=== PATIENT | male | born 1970 | race Caucasian/White ===

== ENCOUNTER 2018-05-18 23:34 | Emergency (ER) | payer OTHER ==
[~2018-05-18] VITALS: Ht 185.4 cm; Wt 93.2 kg
[2018-05-18 23:58] VITALS: TEMP 98.9
[2018-05-19 00:19] LABS: BASO % 0.3 % (0.0-2.0); EOS # 0.2 (0.0-0.7); EOS % 1.3 % (0-4.0); GRAN # 6.7 (1.4-6.5); HEMATOCRIT 44.5 % (42.0-52.0); LYMPH # 4.1 (1.2-3.4); LYMPH % 33.8 % (20.0-51.0); MEAN CELL VOLUME 86 fl (80.0-100.0); MEAN CORPUSCULAR HEMOGLOBIN 29 pg (27.0-31.0); MEAN CORPUSCULAR HGB CONC 34 g/dl (33.0-37.0); MONO # 1.1 (0.1-0.6); MONO % 8.9 % (1.7-9.3); PLATELET COUNT 350 K/mm3 (130-400); RED BLOOD COUNT 5.15 M/mm3 (4.20-5.60); REDCELL DISTRIBUTION WIDTH-CV 12.3 % (11.5-14.5)
[2018-05-19] MEDS ORDERED: ADDERALL XR30 MG PO (00:26)
[2018-05-19 00:33] LABS: ALBUMIN 4.4 gm/dL (3.5-5.0); BILIRUBIN,TOTAL 0.3 mg/dL (0.0-1.0); C-REACTIVE PROTEIN 0.6 mg/dL (0.0-0.9); CALCIUM 9.4 mg/dL (8.4-10.2); CREATININE, serum 0.91 mg/dL (0.66-1.25); POTASSIUM 3.2 mmol/L (3.4-5.0); TOTAL PROTEIN 7.9 gm/dL (6.4-8.2)
[2018-05-19 01:08] LABS: COLLECTION METHOD CLEAN CATCH
[2018-05-19 01:25] LABS: MUCOUS Present /lpf; PH 5 (5-8); SQUAMOUS EPITHELIAL 0-2 /hpf; URINE APPEARANCE Cloudy; URINE BACTERIA None Seen /hpf; URINE BILIRUBIN Negative (NEGATIVE); URINE BLOOD 3+ (NEGATIVE); URINE CALCIUM OXALATE CRYSTAL Present /hpf; URINE COLOR Yellow; URINE GLUCOSE 2+ (NEGATIVE); URINE KETONE Trace (NEGATIVE); URINE LEUKOCYTE ESTERASE Negative (NEGATIVE); URINE NITRATE Negative (NEGATIVE); URINE PROTEIN(semi-quant) 1+ (NEGATIVE); URINE RBC >50 /hpf
[2018-05-19] MEDS ORDERED: FLOMAX 0.40.4 MG/CAP PO (01:48)
[2018-05-19] MEDS ORDERED: PERCOCET 325 MG1 TA2 PO (01:48)
[2018-05-19] MEDS ORDERED: ZOFRAN ODT4 MG PO (01:48)
[2018-05-19 02:16] VITALS: BP 151/84; PULSE 69
== END 2018-05-19 02:18 | disposition home or self-care (01) ==
LOC: COL.ER 23:34
PROVIDERS: Emergency Medicine
DX: R31.9 Hematuria, unspecified (principal); R10.32 Left lower quadrant pain; F90.9 Attention-deficit hyperactivity disorder, unspecified type; Z87.442 Personal history of urinary calculi
CPT/HCPCS: J1170; J1885; J2405; J7030